=== PATIENT | female | born 1930 | race African-American/Black ===

== ENCOUNTER 2019-09-18 18:14 | Emergency (ER) | payer MEDICARE, OTHER ==
[~2019-09-18] VITALS: Ht 165.1 cm; Wt 52.2 kg
[2019-09-18 18:21] VITALS: BP 143/75
--- NOTE | 2019-09-18 18:34 | NUR ---
PT WHEELCHAIRED TO ER BED 9
--- NOTE | 2019-09-18 18:46 | NUR ---
88 Y/O FEMALE PRESENTING WITH C/C OF PAIN ON LUE RADIATING TO LEFT SIDE OF UPPER BACK. DENIES N/V/D. PAIN 08/06. MEDICAL HX OF HIGH CHOLESTEROL PER PT. PATIENT DENIES TRAUMA, PAIN HAS BEEN PERSISTENT X1 WEEK. FAMILY AT BEDSIDE.
[2019-09-18 19:14] LABS: BASOPHILS % (AUTO) 0.8 % (0.0-2.0); EOSINOPHILS # (AUTO) 0.1 K/uL (0-0.4); EOSINOPHILS % (AUTO) 2.5 % (0.0-4.0); HEMATOCRIT 34.1 % (36-48); HEMOGLOBIN 11.1 g/dL (12.0-16.0); LYMPHOCYTES # (AUTO) 1.2 K/uL (2.5-16.5); LYMPHOCYTES % (AUTO) 40.9 % (20.5-51.1); MEAN CORPUSCULAR HEMOGLOBIN 32 pg (27-31); MEAN CORPUSCULAR HGB CONC 33 g/dL (33-37); MEAN CORPUSCULAR VOLUME 96.8 fL (80-94); MONOCYTES # (AUTO) 0.2 K/uL (0.8-1.0); MONOCYTES % (AUTO) 7.6 % (1.7-9.3); NEUTROPHILS # (AUTO) 1.4 K/uL (1.8-7.7); NEUTROPHILS % (AUTO) 48.2 % (42.2-75.2); PLATELET COUNT (AUTO) 210 K/uL (140-450); RED BLOOD CELL COUNT(AUTO) 3.52 MIL/uL (4.20-5.40); RED CELL DISTRIBUTION WIDTH 13.9 % (11.6-13.7); WHITE BLOOD COUNT (AUTO) 2.9 K/uL (4.8-10.8)
[2019-09-18 19:43] LABS: ANION GAP 14.6 (8-16); CARBON DIOXIDE 26.4 mmol/L (21-32); CHLORIDE 106 mmol/L (98-107); CREATININE 0.7 mg/dL (0.6-1.3); GLUCOSE 114 mg/dL (74-106); SODIUM SERUM 143 mmol/L (136-145); UREA NITROGEN, BLOOD 10 mg/dL (7-18)
[2019-09-18 19:48] LABS: ALBUMIN 3.4 g/dL (3.4-5.0); ASPARTATE AMINOTRANSFERASE 16 U/L (15-37); TOTAL BILIRUBIN 0.2 mg/dL (0.0-1.0)
[2019-09-18] MEDS ORDERED: KETOROLAC 60 MG/2 ML VIAL IM ONE (21:20)
[2019-09-18 21:43] LABS: APPEARANCE,URINE CLEAR (CLEAR); BILIRUBIN,URINE NEGATIVE (NEGATIVE); BLOOD, URINE TRACE-I (NEGATIVE); COLOR,URINE YELLOW (YELLOW); LEUKOCYTE ESTERASE ,URINE NEGATIVE (NEGATIVE); NITRITE, URINE NEGATIVE (NEGATIVE); UGLUCOSE NEGATIVE (NEGATIVE)
[2019-09-18 22:15] VITALS: BP 143/75
--- NOTE | 2019-09-18 22:15 | NUR ---
PT DISCHARGED WITH PAPERWORK. NO MEDICATIONS RX PROVIDED. EDUCATED PT REGARDING D/C DIAGNOSIS AND INSTRUCTIONS. PT VERBALIZED UNDERSTANDING OF TEACHING. TOLD PT TO FOLLOW UP WITH PCP AND WHEN TO RETURN TO ED. PT AT STABLE CONDITION. ALL QUESTIONS ANSWERED.
[2019-09-18 22:18] LABS: RBC,URINE 0-5 /HPF (0-5)
[2019-09-18 22:19] LABS: WBC,URINE NONE SEEN /HPF (0-5)
== END 2019-09-18 22:15 | disposition home or self-care (01) ==
LOC: MED 18:14
DX: R10.9 Unspecified abdominal pain (principal); E78.00 Pure hypercholesterolemia, unspecified
CPT/HCPCS: 36415; 74176; 80053; 81001; 85025; 96372; 99284; J1885

== ENCOUNTER 2021-01-26 15:32 | Emergency (ER) | payer OTHER ==
[~2021-01-26] VITALS: Ht 167.6 cm; Wt 52.6 kg
[2021-01-26 15:41] VITALS: BP 136/84
--- NOTE | 2021-01-26 15:45 | NUR ---
PATIENT WHEELCHAIR ASSISTED TO BED 5.
--- NOTE | 2021-01-26 15:46 | NUR ---
89 F BIB caregiver c/c 10/10 sharp bilateral leg pain that shoots down . Pain exacerbated when straightening when she walks. Denies bowel/bladder loss, and loss of sensation between thighs. Denies SOB, palpitations, chest pain. Surghx: lower back surgery PMH: Arthritis, hyperlipidemia, nka
--- NOTE | 2021-01-26 15:55 | NUR ---
ERMD AT BEDSIDE EVALUATING PT
[2021-01-26] MEDS ORDERED: KETOROLAC 15 MG/ML VIAL IM SCH (16:10)
[2021-01-26] MEDS ORDERED: KETOROLAC 15 MG/ML VIAL ONE (16:10)
[2021-01-26 17:02] VITALS: BP 136/84
--- NOTE | 2021-01-26 17:02 | NUR ---
Patient discharged with v/s stable. Written and verbal after care instructions given and explained. Patient verbalized understanding. Patient w/c assisted to car accompanied by daughter. All questions addressed prior to discharge. Advised to follow up with PMD.
== END 2021-01-26 17:02 | disposition home or self-care (01) ==
LOC: MED 15:32
DX: M54.30 Sciatica, unspecified side (principal); E78.00 Pure hypercholesterolemia, unspecified; Z98.890 Other specified postprocedural states
CPT/HCPCS: 96372; 99283; J1885

== ENCOUNTER 2021-03-15 12:34 | Emergency (ER) | payer OTHER ==
[~2021-03-15] VITALS: Ht 165.1 cm; Wt 52.2 kg
[2021-03-15 12:39] VITALS: BP 120/74
--- NOTE | 2021-03-15 12:45 | NUR ---
PT WHEELED TO BED 8.
[2021-03-15] MEDS ORDERED: KETOROLAC 60 MG/2 ML VIAL IM ONE (12:50)
--- NOTE | 2021-03-15 12:54 | NUR ---
89 Y/F PRESENTS TO ED FOR L SHOULDER PAIN RADIATES TO ARM AND PAIN TO LT KNEE. DENIES INJURY, PT REPORTS SHARP CONSTANT 9/10 PAIN. PMH-OSTEOPOROSIS,ARTHRITIS NKDA
--- NOTE | 2021-03-15 13:15 | NUR ---
DR MOROCHO AT BEDSIDE EXAMINING PT
[2021-03-15] MEDS ORDERED: ACET-8386 PO (13:29)
[2021-03-15] MEDS ORDERED: IBUP-2213 PO (13:29)
[2021-03-15 13:40] VITALS: BP 120/74
--- NOTE | 2021-03-15 13:40 | NUR ---
Patient discharged with v/s stable. Written and verbal after care instructions given and explained. Patient alert, oriented and verbalized understanding of instructions. Ambulatory with steady gait. All questions addressed prior to discharge. ID band removed. Patient advised to follow up with PMD. Rx of Hollis and Ibuprofen given. Patient educated on indication of medication including possible reaction and side effects. Opportunity to ask questions provided and answered.
== END 2021-03-15 13:40 | disposition home or self-care (01) ==
LOC: MED 12:34
DX: M25.512 Pain in left shoulder (principal); M25.562 Pain in left knee; M25.522 Pain in left elbow; Z98.890 Other specified postprocedural states
CPT/HCPCS: 96372; 99283; J1885